=== PATIENT | male | born 1955 | race Caucasian/White ===

== ENCOUNTER → 2017-01-28 | Outpatient (CLI) | payer OTHER ==
[~2017-01-28] MED LIST: LRT5 PO; PREDNISONE TAPER
[2017-01-28 18:12] LABS: ALT/SGPT 35 U/L (12-78); AST/SGOT 25 U/L (15-37); BLOOD UREA NITROGEN 28 mg/dl (7-18); BUN/CREATININE RATIO 27.8 (10-20); CARBON DIOXIDE 29 mmol/L (21-32); CHLORIDE 105 mmol/L (98-107); CHOLESTEROL 237 mg/dl (0-200); GLUCOSE 104 mg/dl (70-99); POTASSIUM 4.1 mmol/L (3.5-5.1); SODIUM 140 mmol/L (136-145)
[2017-01-28 18:18] LABS: ALB/GLOB RATIO 1.5 (0.9-2); ALKALINE PHOSPHATASE 60 U/L (45-117); CHOLESTEROL/HDL RATIO 3.6; HDL CHOLESTEROL 66 mg/dl; LDL CHOLESTEROL CALCULATED 126 mg/dl; TRIGLYCERIDES 223 mg/dl (0-150); VERY LOW DENSITY LIPOPROT CALC 45 mg/dl
== END | disposition home or self-care (01) ==
LOC: C.LABBC 11:03
PROVIDERS: ATTEND Physician Assistant Medical
DX: Z00.00 Encounter for general adult medical examination without abnormal findings (principal); Z85.46 Personal history of malignant neoplasm of prostate; E78.5 Hyperlipidemia, unspecified

== ENCOUNTER 2017-11-28 19:36 | Emergency (ER) | payer OTHER ==
[~2017-11-28] VITALS: Ht 177.8 cm; Wt 87.4 kg
[2017-11-28 19:38] VITALS: TEMP 36.7; Ht 177.8 cm; Wt 87.4 kg
[2017-11-28] MEDS ORDERED: CIPR-255 PO (20:46)
--- NOTE | 2017-11-28 20:49 | EMERGENCY ROOM VISIT NOTE ---
History Report prepared by Lanny: Lam Hollis Under the Supervision of: Dr. Gautam Edwards D.O. First contact with patient: 19:42 Chief Complaint: URINARY SYMPTOMS Stated Complaint: BLADDER RETENTION Nursing Triage Summary: Pt states, "Since yesterday morning I have blood in my urine. Sometimes it is pieces of blood. I have prostate enlargement." Denies flank pain. Denies past hx of similar sx. History of Present Illness The patient is a 61 year old male who presents to the Emergency Room with complaints of hematuria that started 1 day ago. He states that yesterday morning , he was initially urinating small clots which increased to "urinating blood". He states that he has difficulty urinating, increased urination, and an enlarged prostate. He denies flank, back, abdominal, and penile pain. The patient reports recent travel and noticed that after intercourse yesterday, he noticed blood clots in his urine. The patient states that he took Cipro. Of note , the patient states he had prostate cancer treated in [place] and followed up with Dr. Kweis Ruiz (urology) 10 years ago for blood/PSA test. Source of History: patient Onset: 1 day ago Position: pelvis Timing: constant Associated Symptoms: + urinary symptoms (hematuria, increased urination, and difficulty urinating), No abdominal pain, No back pain Note: Patient denies flank and penile pain. Review of Systems See HPI for pertinent positives & negatives. A total of 10 systems reviewed and were otherwise negative. Past Medical & Surgical Surgical Problems: (1) Prostate CA Social History Smoking Status: Never Smoker Marital Status: Housing Status: lives with significant other Current/Historical Medications Scheduled Ciprofloxacin Hcl (Cipro), 500 MG PO BID Hydrocodone/Acetaminophen 5MG/500MG (Vicodin 5MG/500MG), 1-2 TAB PO Q6HR PRN Miscellaneous Medications [Prednisone Taper] Allergies Coded Allergies: No Known Allergies (Unverified Allergy, Mild, 07/20/07) Physical Exam Vital Signs Date Time Temp Pulse Resp B/P (MAP) Pulse Ox O2 Delivery O2 Flow Rate FiO2 11/28/17 19:38 36.7 80 16 170/111 96 Room Air Physical Exam CONSTITUTIONAL/VITAL SIGNS: Reviewed / noted above. GENERAL: Non-toxic in appearance. INTEGUMENTARY: Warm, dry, and [place]. HEAD: Normocephalic. EYES: without scleral icterus or trauma. ENT/OROPHARYNX: clear and moist. LYMPHADENOPATHY/NECK: Is supple without lymphadenopathy or meningismus. RESPIRATORY: Lungs clear and equal. CARDIOVASCULAR: Regular rate and rhythm. GI/ABDOMEN: Soft and nontender. No organomegaly or pulsatile mass. No rebound or guarding. Normal bowel sounds. EXTREMITIES: Warm and well perfused. BACK: No CVA tenderness. NEUROLOGICAL: Intact without focal deficits. PSYCHIATRIC: normal affect. MUSCULOSKELETAL: Normally developed with good muscle tone. Medical Decision & Procedures Laboratory Results Test 11/28/17 19:50 Urine Color RED Urine Appearance TURBID (CLEAR) Urine pH 6.0 (4.5-7.5) Urine Specific [place] 1.015 (1.000-1.030) Urine Protein 2+ (NEG) Urine Glucose (UA) NEG (NEG) Urine Ketones NEG (NEG) Urine Occult Blood 3+ (NEG) Urine Nitrite NEG (NEG) Urine Bilirubin NEG (NEG) Urine Urobilinogen NEG (NEG) Urine Leukocyte Esterase NEG (NEG) Urine RBC >30 /hpf (0-4) Urine WBC >30 /hpf (0-5) Urine Epithelial Cells 5-10 /lpf (0-5) Urine Bacteria NEG (NEG) Urine Hyaline Casts 0 /lpf (0-5) Laboratory results as stated above per my review. ED Course 1999: Previous medical records were reviewed. The patient was evaluated in room C12B. A complete history and physical examination was performed. 2100: On reevaluation, the patient is doing well. I discussed the results and findings with the patient. He verbalized agreement of the treatment plan. He was discharged home. Medical Decision Differential diagnoses includes hematuria, UTI, prostate infection, bladder infection, kidney stones, and bladder cancer This is a 61-year-old male who presents to the ED with a chief complaint of hematuria. The patient states that his symptoms started yesterday morning. He reports hematuria as well as some clots. He does report a history of enlarged prostate. He denied having any pain. He did start Cipro this morning that he had at his house. The patient states that he took 2 doses this morning and another dose this evening. His exam was completely normal. His urinalysis is noted. No clear bacteria but there is protein and blood as well as leukocytes. The sample may be challenging to understand since he did take a couple doses of Cipro. Because the patient's hematuria, he will continue taking Cipro. He was given a prescription for this. The patient is to follow-up with Dr. Ruiz this week for recheck. If symptoms persist a cystoscopy may be beneficial. This decision will be left up to Dr. Ruiz. The patient was advised that his symptoms could be related to a urinary tract infection and/or bladder cancer. The patient requested a self-catheterization kit in case he has problems draining his bladder due to clots. He was provided with a kit. He states that he knows how to use it. Is advised on how to use this sterilely. Medication Reconcilliation Current Medication List: was personally reviewed by me Blood Pressure Screening Patient's blood pressure: Elevated blood pressure Blood pressure disposition: Elevated BP felt to be situational Impression Primary Impression: Symptoms involving urinary system Additional Impression: Hematuria Scribe Attestation The scribe's documentation has been prepared under my direction and personally reviewed by me in its entirety. I confirm that the note above accurately reflects all work, treatment, procedures, and medical decision making performed by me. Departure Information Dispostion Home / Self-Care Prescriptions Ciprofloxacin Hcl (CIPRO) 500 Mg Tab 500 MG PO BID, #14 TAB Prov: Gautam Edwards D.O. 11/28/17 Referrals No Doctor, Assigned (PCP) Patient Instructions Hematuria, My [facility] Additional Instructions The urine sample did not reveal a clear urinary tract infection. The sample may be difficult to assess because of the Cipro you have taken today. Continue Cipro as prescribed. Follow-up with Dr. Ruiz this week for recheck and possible cystoscopy to rule out bladder cancer. Problem Qualifiers
[2017-11-28] MEDS ORDERED: TAMS0.4C38 PO (21:06)
[2017-11-28] MEDS ORDERED: LISI-729 PO (21:06)
[2017-11-28] MEDS ORDERED: SIMV20TA2 PO (21:06)
[2017-11-28] MEDS ORDERED: BUSP1TAB46 PO (21:06)
[2017-11-28 21:15] VITALS: BP 154/98; PULSE 73; O2SAT 95
== END 2017-11-28 21:16 | disposition home or self-care (01) ==
LOC: C.EDB 19:38
DX: R31.9 Hematuria, unspecified (principal); N40.0 Benign prostatic hyperplasia without lower urinary tract symptoms; Z85.46 Personal history of malignant neoplasm of prostate

== ENCOUNTER 2017-11-29 21:43 | Emergency (ER) | payer OTHER ==
[~2017-11-29] VITALS: Ht 177.8 cm; Wt 87.1 kg
[~2017-11-29 21:43] MED LIST changes: +BUSP1TAB46 PO; +CIPR-255 PO; +LISI-729 PO; -LRT5 PO; -PREDNISONE TAPER; +SIMV20TA2 PO; +TAMS0.4C38 PO
[2017-11-29 21:55] VITALS: TEMP 36.7; Ht 177.8 cm; Wt 87.1 kg
[2017-11-29] MEDS ORDERED: LIDOCAINE HCL 2% JELLY 30 ML TUBE EXT ONE (23:58)
[2017-11-30 00:33] VITALS: BP 129/80; PULSE 70; O2SAT 96
--- NOTE | 2017-11-30 03:24 | EMERGENCY ROOM VISIT NOTE ---
History Report prepared by Lanny: Lam Hollis Under the Supervision of: Dr. Gautam Edwards D.O. First contact with patient: 23:30 Chief Complaint: HEMATURIA Stated Complaint: BLOOD IN URINE Nursing Triage Summary: pt seen here yesterday for hematuria. pt given straight cath to take home. unable to get it in. thinks he has blood clot and unable to void. History of Present Illness The patient is a 62 year old male who presents to the Emergency Room with complaints of inability to urinate completely that began prior to arrival. The patient was seen at the ED yesterday for hematuria and discharged with a catheter which he was able to insert into his urethra last night. The patient states he was unable to see Dr. Ruiz today and will reschedule to get a scope done. He states he was at the [facility] earlier today and states pieces of blood were in his urine which he states is from recent trauma to his urethra. Of note, the patient is still taking Cipro. Source of History: patient Onset: [employer]IL [employer] Position: other (genitourinary) Timing: constant Associated Symptoms: + urinary symptoms (The patient has been unable to urinate and states blood clots in urine) Review of Systems See HPI for pertinent positives & negatives. A total of 10 systems reviewed and were otherwise negative. Past Medical & Surgical Surgical Problems: (1) Prostate CA Social History Smoking Status: Never Smoker Marital Status: Housing Status: lives with significant other Current/Historical Medications Scheduled Buspirone Hcl (Buspirone Hcl), 7.5 MG PO TID Ciprofloxacin Hcl (Cipro), 500 MG PO BID Lisinopril (Prinivil), 5 MG PO BID Simvastatin (Zocor), 20 MG PO QPM Tamsulosin Hcl (Flomax), 0.4 MG PO DAILY Allergies Coded Allergies: No Known Allergies (Unverified , 11/29/17) Physical Exam Vital Signs Date Time Temp Pulse Resp B/P (MAP) Pulse Ox O2 Delivery O2 Flow Rate FiO2 11/30/17 00:33 70 18 129/80 96 11/29/17 21:55 36.7 77 18 141/89 95 Room Air Physical Exam CONSTITUTIONAL/VITAL SIGNS: Reviewed / noted above. GENERAL: Non-toxic in appearance. INTEGUMENTARY: Warm, dry, and [place]. HEAD: Normocephalic. EYES: without scleral icterus or trauma. ENT/OROPHARYNX: clear and moist. LYMPHADENOPATHY/NECK: Is supple without lymphadenopathy or meningismus. RESPIRATORY: Lungs clear and equal. CARDIOVASCULAR: Regular rate and rhythm. GI/ABDOMEN: Soft and nontender. No organomegaly or pulsatile mass. No rebound or guarding. Normal bowel sounds. EXTREMITIES: Warm and well perfused. BACK: No CVA tenderness. NEUROLOGICAL: Intact without focal deficits. PSYCHIATRIC: normal affect. MUSCULOSKELETAL: Normally developed with good muscle tone. Medical Decision & Procedures Medications Administered Medications (Trade) Dose Ordered Sig/[place]ia Route Start Time Stop Time Status Last Admin Dose Admin Lidocaine HCl (Xylocaine Jelly 2%) 30 ml STK-MED ONCE EXT 11/29/17 23:58 11/29/17 23:59 DC 11/29/17 23:58 30 ML ED Course 2330: Previous medical records were reviewed. The patient was evaluated in room B6. A complete history and physical examination was performed. 0045: On reevaluation, the patient is doing well. I discussed the results and findings with the patient. He verbalized agreement of the treatment plan. The patient was discharged home. Medical Decision Differential considered: pancreatitis, hepatitis, or acute cholecystitis, AAA, UTI, pyelonephritis, kidney stones, appendicitis, diverticulitis, shingles, bowel obstruction mesenteric ischemia, intussusception,hernia, testicular torsion. This is a 62-year-old male who presents to the ED with a chief complaint of hematuria. The patient was seen by myself yesterday. Urine culture revealed some pinpoint growth and is being recultured. The patient's exam today reveals some clots and urinary dysfunction. A Spencer catheter was placed. The patient did see a urologist earlier today and is being currently treated with Cipro. He is going to have a cystoscopy later this week. A Spencer catheter was placed and a leg bag was provided. The bladder was irrigated somewhat. The patient was educated on how to do this and he was felt to be stable for discharge. Medication Reconcilliation Current Medication List: was personally reviewed by me Blood Pressure Screening Patient's blood pressure: Elevated blood pressure Blood pressure disposition: Elevated BP felt to be situational Impression Primary Impression: Hematuria Scribe Attestation The scribe's documentation has been prepared under my direction and personally reviewed by me in its entirety. I confirm that the note above accurately reflects all work, treatment, procedures, and medical decision making performed by me. Departure Information Dispostion Home / Self-Care Referrals No Doctor, Assigned (PCP) Patient Instructions My [facility]
== END 2017-11-30 00:33 | disposition home or self-care (01) ==
LOC: C.EDB 21:45
DX: R31.9 Hematuria, unspecified (principal); Z85.46 Personal history of malignant neoplasm of prostate

== ENCOUNTER → 2017-12-02 | Outpatient (CLI) | payer OTHER ==
[2017-12-02 17:34] LABS: HEMATOCRIT 42.2 % (42-52); HEMOGLOBIN 14.2 g/dL (14.0-18.0); MEAN CELL VOLUME 90.8 fL (80-100); MEAN CORPUSCULAR HEMOGLOBIN 30.5 pg (25-34); MEAN CORPUSCULAR HGB CONC 33.6 g/dl (32-36); MEAN PLATELET VOLUME 11.7 fL (7.4-10.4); PLATELET COUNT 141 K/uL (130-400); RED CELL DISTRIBUTION WIDTH CV 13.4 % (11.5-14.5); RED CELL DISTRIBUTION WIDTH SD 44.1 fL (36.4-46.3); WHITE BLOOD COUNT 7.98 K/uL (4.8-10.8)
[2017-12-02 17:51] LABS: BLOOD UREA NITROGEN 25 mg/dl (7-18); CALCIUM 9.1 mg/dl (8.5-10.1); CARBON DIOXIDE 27 mmol/L (21-32); CREATININE 1.29 mg/dl (0.60-1.40); GLUCOSE 95 mg/dl (70-99); POTASSIUM 4.3 mmol/L (3.5-5.1); SODIUM 135 mmol/L (136-145)
== END | disposition home or self-care (01) ==
LOC: C.LABBC 15:20
PROVIDERS: ATTEND Urology
DX: R00.2 Palpitations (principal); C61 Malignant neoplasm of prostate; R31.0 Gross hematuria

== ENCOUNTER → 2017-12-07 | Outpatient (CLI) | payer OTHER ==
[~2017-12-07] MED LIST changes: +OPTIRAY 320 IV PRN
--- NOTE | 2017-12-07 10:13 | DIAGNOSTIC IMAGING REPORT ---
CT OF THE ABDOMEN AND PELVIS WITH AND WITHOUT CONTRAST HEMATURIA PROTOCOL CLINICAL HISTORY: Gross hematuria. Malignant neoplasm of prostate. COMPARISON STUDY: Whole body bone scan April 21, 2006 TECHNIQUE: Unenhanced and split bolus phase imaging of the abdomen and pelvis was performed. Injection of 93 cc Optiray 320 IV was uneventful. A dose lowering technique was utilized adhering to the principles of ALARA. CT DOSE: 1661.46 mGycm FINDINGS: Moderate cardiomegaly is noted. The liver, spleen, adrenal glands and pancreas are unremarkable. There is no abdominal or pelvic lymphadenopathy. There is no evidence for a bowel obstruction. The appendix is normal. A fat-containing right inguinal hernia is present. No renal, ureteral or bladder calculi are present. There are no renal lesions. No upper tract urothelial lesions are identified. There is no hydronephrosis or hydroureter. There is moderate enlargement of the prostate. Median lobe of the prostate indents the base of the bladder. Moderate bladder wall thickening is noted. There is mild adjacent infiltration. Evaluation of the bladder is suboptimal given incomplete opacification. No suspicious osseous lesions are present. IMPRESSION: 1. Moderate bladder wall thickening and mild adjacent infiltration. These findings raise the possibility of cystitis. Associated prostatic enlargement raises the possibility of chronic bladder outlet obstruction. No discrete bladder mass by CT. 2. No hydronephrosis or hydroureter. No upper tract urothelial lesions. No urinary calculi. 3. No evidence for metastatic disease within the abdomen or pelvis. Electronically signed by: Rell Stearns M.D. 12/07/2017 10:12 AM Dictated Date/Time: 12/07/2017 8:52 AM
== END | disposition home or self-care (01) ==
LOC: C.CTS 07:17
PROVIDERS: ATTEND Urology
DX: C61 Malignant neoplasm of prostate (principal); R31.0 Gross hematuria

== ENCOUNTER → 2017-12-10 | Outpatient (CLI) | payer OTHER ==
[~2017-12-10] MED LIST changes: -OPTIRAY 320 IV PRN
== END | disposition home or self-care (01) ==
LOC: C.LABSPEC 14:44
PROVIDERS: ATTEND Urology
DX: C61 Malignant neoplasm of prostate (principal); R33.9 Retention of urine, unspecified

== ENCOUNTER 2025-02-26 07:43 | Observation (INO) ==
[2025-02-26 07:52] VITALS: TEMP 98.2
[2025-02-26] MEDS ORDERED: STAT IV Infusion **Titration per Protocol STA (08:09)
[2025-02-26 08:12] LABS: Basophils # (auto) 0.02 K/uL (0.00-0.20); Basophils % (auto) 0.4 %; Eosinophils # (auto) 0.08 K/uL (0.00-0.50); Eosinophils % (auto) 1.7 %; Hematocrit (blood only) 42.4 % (42.0-52.0); Hemoglobin 14.4 g/dl (14.0-18.0); Immature Granulocytes # (auto) 0.01 K/uL (0.01-0.20); Immature Granulocytes % (auto) 0.2 %; Lymphocytes # (auto) 2.22 K/uL (1.20-3.40); Mean Corpuscular Hemoglobin 30.7 pg (25.0-34.0); Mean Corpuscular Volume 90.4 fL (80.0-100.0); Mean Platelet Volume 10.8 fL (9.4-12.4); Monocytes # (auto) 0.43 K/uL (0.11-0.59); Monocytes % (auto) 9.1 %; Neutrophils # (auto) 1.96 K/uL (1.40-6.50); Neutrophils % (auto) 41.6 %; Platelet Count 118 K/uL (130-400); RDW Standard Deviation 42.5 fL (36.4-46.3); Red Blood Count 4.69 M/uL (4.70-6.10); White Blood Count 4.72 K/ul (4.8-10.8)
--- NOTE | 2025-02-26 08:12 | Emergency Department Note ---
Impression & Plan Atrial fibrillation with rapid ventricular response, Shortness of breath ED Provider Note NAME: CASSANDRA AMAYA AGE: 69 SEX: M : 1955 ARRIVES VIA: Walk-In INFORMANT: Patient ED PROVIDER(S): Janes Zepeda DO CHIEF COMPLAINT: Palpitations HPI: Patient is a 69-year-old male with a past medical history of tremors, anemia, hypertension, anxiety, hyperlipidemia who presents to the ER for palpitations. Started around he thinks 5 AM this morning. He feels his heart racing. He does feel short of breath and very weak and rundown. Denies any headache or change in vision. No chest pain. Denies any dysuria, urgency or frequency. He notes he has had a history of A-fib before in the past. Does not take any blood thinner. ADDITIONAL HISTORY OBTAINED: is at bedside and provides additional history and notes that he gets these episodes about once a month but this 1 is much worse than what he has had before in the past. Chronic Medical/Social Conditions Affecting Care: Per HPI PAST MEDICAL HISTORY:See Below PAST SURGICAL HISTORY:See Below FAMILY HISTORY:See Below SOCIAL HISTORY:See Below HOME MEDICATIONS:See Below ALLERGIES:See Below VITALS:See Below PHYSICAL EXAMINATION: GENERAL: Sitting up in bed, alert, well appearing, well nourished, no distress, non-toxic EYE EXAM: normal conjunctiva. OROPHARYNX: mucous membranes are moist LUNGS: Clear to auscultation. Normal chest wall mechanics HEART: Tachycardic and irregularly irregular S1 normal and S2 normal ABDOMEN: abdomen soft, non-tender, normo-active bowel sounds, no masses, no rebound or guarding. UPPER EXTREMITIES: upper extremities are grossly normal. LOWER EXTREMITIES: No pitting edema. NEURO EXAM: Normal sensorium, cranial nerves II-XII grossly intact, normal speech, no gross weakness of arms, no gross weakness of legs. MEDICAL DECISION MAKING: Patient is a 69-year-old male who presents ER for palpitations with a remote history of A-fib with RVR. IV was established and blood work was obtained. He was significantly short of breath. Labs show mild leukopenia 4.7 thousand. No anemia. BMP with mild hypokalemia 3.3. LFTs and bilirubin was unremarkable. TSH mildly elevated. Lipase was normal. Troponin was negative. EKG was consistent with A-fib with RVR. Patient was given Cardizem bolus and started on Cardizem drip. This was titrated up to 10. Heart rate trended down to about 110. Patient was still in A-fib and consequently discussed case with the hospitalist for further evaluation management treatment. Consults/Care Managements Discussions: Per [facility] Triage Nursing notes reviewed. Limited review of prior medical records performed Vital Signs: reviewed and remarkable for HTN and tachy Differential diagnosis: Cardiac ischemia, aortic dissection, pulmonary embolism, pneumothorax, pneumonia, pericarditis, myocarditis, esophageal rupture, GERD, cholecystitis, pancreatitis, musculoskeletal, as well as other pathologies. ER treatment provided: See below Diagnostics interpreted by me include EKG and cardiac monitoring as listed below: -Cardiac Monitoring: An order was placed for continuous cardiac monitoring. The monitor shows a rate of 140 with A-fib rhythm. -ECG: A-fib rate of 145 Left axis No PVCs QTc 487 -Laboratory studies:Interpreted by me as stated above in MDM and shown below. Imaging studies: Xrays: As interpreted by me: Portable AP upright 1 view of the chest shows no focal infiltrate CTs show: none Procedures:none Critical Care: I have personally spent 33 minutes of critical care time in the direct management of this patient. This includes bedside care, interpretation of diagnostic studies, and testing, discussion with consultants, patient, and family members, and other required patient management activities. This 33 minutes is in excess of all separately billable procedures. Past Med/Surg History Problem List (Updated 02/26/25 @ 12:19 by Janes Zepeda DO) Shortness of breath (Acute) Hypokalemia Atrial fibrillation with rapid ventricular response (Acute) Lower urinary tract symptoms (LUTS) Hypothyroidism Essential tremor Lumbar radiculopathy Spinal stenosis of lumbar region Epidermoid cyst Positive colorectal cancer screening using Cologuard test Encounter for pre-operative examination Hematuria (Acute) Lumbar disc disease (Chronic) Anemia Abnormal WBC count HTN (hypertension) (Chronic) History of prostate cancer (~2003) LASER TREATMENT Anxiety Hyperlipidemia Medical History Chronic back pain Symptomatic PVCs Surgical History Nausea and vomiting after administration of anesthetic agent History of knee surgery Family History Father Kidney stones Mother Stroke Brother Stroke Hypertension Denies family history of Ovarian cancer Prostate cancer Diabetes Depression Heart disease Myocardial infarction Breast cancer Lung cancer Colorectal cancer Social History Smoking Status: Never smoker Second Hand Exposure: No; Do You Dip or Chew Tobacco: No; Hx Alcohol Use: Yes Alcohol type: wine Alcohol Intake Frequency: 4 or More x per/Week Alcohol Intake Frequency Comment: daily Hx Substance Use: No Preferred Language: Swedish Communication Ability: Effective Visual Impairment: No Limitations Hearing Ability: Normal Power Lineworker Required: No Beliefs That Will Affect Care: None marital status: Current Living Situation: Spouse current occupational status: employed and retired current occupation: still working fulltime Feels Safe at Home: Yes Childhood Exposure to Second-Hand Smoke: No Diet: regular caffeine: Yes during the past year weight has: remained stable Dental Care, Regularly: Yes Physical Activity Frequency: 1-2 Times per Week Physical Activity Frequency Comment: goes to gym and walks Seatbelt Use: always Sunscreen Use: Yes (not in the sun) Do you think of yourself as: straight/heterosexual Assistive Devices: None Allergies Allergies Allergy/AdvReac Type Severity Reaction Status Date / Time No Known Allergies Allergy Mild Verified 02/26/25 09:26 Home Meds Home Medications Medication Instructions Recorded Confirmed levothyroxine 25 mcg tablet 25 mcg PO DAILY 02/26/25 02/26/25 metoprolol succinate 25 mg 25 mg PO DAILY 02/26/25 02/26/25 tablet,extended release 24 hr tamsulosin 0.4 mg capsule 0.4 mg PO BID 02/26/25 02/26/25 Previous Rx's Medication Instructions Recorded atorvastatin 40 mg tablet 40 mg PO DAILY #90 tabs 11/08/24 sildenafil 100 mg tablet 100 mg PO DAILY PRN sexual 02/13/25 activity #90 tabs Results & Data (ED) Vital Signs Vital Signs - 24 hr 02/26/25 07:48 02/26/25 07:59 02/26/25 08:03 Temperature 36.8 C Temperature Source Temporal Artery Scan Pulse Rate 133 H 146 H Pulse Rate [Apical] Pulse Rate from SpO2 Sensor Pulse Rhythm Pulse Rhythm [Apical] Pulse Strength [Apical] Respiratory Rate 20 Respiratory Effort / Characteristics Short of Breath Respiratory Depth Respiratory Pattern Blood Pressure 114/75 Blood Pressure [Left Arm] Blood Pressure Mean 88 Blood Pressure Mean [Left Arm] Blood Pressure Position [Left Arm] Pulse Oximetry 100 Oxygen Delivery Method Room Air Room Air Sepsis New/Unexplained Change in Mental Status No Sepsis Action Taken by Nursing No Action Required 02/26/25 08:03 02/26/25 08:03 02/26/25 08:03 Temperature Temperature Source Pulse Rate 128 H 129 H Pulse Rate [Apical] Pulse Rate from SpO2 Sensor Pulse Rhythm Irregular Pulse Rhythm [Apical] Pulse Strength [Apical] Respiratory Rate 22 24 Respiratory Effort / Characteristics Respiratory Depth Respiratory Pattern Blood Pressure 144/125 H Blood Pressure [Left Arm] Blood Pressure Mean 135 Blood Pressure Mean [Left Arm] Blood Pressure Position [Left Arm] Pulse Oximetry 98 98 98 Oxygen Delivery Method Room Air Room Air Room Air Sepsis New/Unexplained Change in Mental Status Sepsis Action Taken by Nursing 02/26/25 08:15 02/26/25 08:21 02/26/25 08:42 Temperature Temperature Source Pulse Rate 128 H 120 H 114 H Pulse Rate [Apical] Pulse Rate from SpO2 Sensor Pulse Rhythm Pulse Rhythm [Apical] Pulse Strength [Apical] Respiratory Rate 18 24 18 Respiratory Effort / Characteristics Respiratory Depth Respiratory Pattern Blood Pressure 119/103 H 116/76 119/74 Blood Pressure [Left Arm] Blood Pressure Mean 108 89 89 Blood Pressure Mean [Left Arm] Blood Pressure Position [Left Arm] Pulse Oximetry 98 95 92 Oxygen Delivery Method Room Air Room Air Room Air Sepsis New/Unexplained Change in Mental Status Sepsis Action Taken by Nursing 02/26/25 08:43 02/26/25 09:00 02/26/25 09:21 Temperature Temperature Source Pulse Rate 99 H 143 H Pulse Rate [Apical] 118 H Pulse Rate from SpO2 Sensor Pulse Rhythm Pulse Rhythm [Apical] Irregular Pulse Strength [Apical] Normal Respiratory Rate 16 16 16 Respiratory Effort / Characteristics Non-Labored Spontaneous Respiratory Depth Normal Respiratory Pattern Regular Blood Pressure 118/70 114/80 Blood Pressure [Left Arm] 119/74 Blood Pressure Mean 104 91 Blood Pressure Mean [Left Arm] 89 Blood Pressure Position [Left Arm] Semi-fowlers Pulse Oximetry 94 96 97 Oxygen Delivery Method Room Air Room Air Room Air Sepsis New/Unexplained Change in Mental Status Sepsis Action Taken by Nursing 02/26/25 09:25 02/26/25 09:39 02/26/25 09:51 Temperature Temperature Source Pulse Rate 128 H 134 H 114 H Pulse Rate [Apical] Pulse Rate from SpO2 Sensor Pulse Rhythm Pulse Rhythm [Apical] Pulse Strength [Apical] Respiratory Rate 16 24 18 Respiratory Effort / Characteristics Respiratory Depth Respiratory Pattern Blood Pressure 115/89 110/77 121/86 Blood Pressure [Left Arm] Blood Pressure Mean 92 88 97 Blood Pressure Mean [Left Arm] Blood Pressure Position [Left Arm] Pulse Oximetry 94 93 95 Oxygen Delivery Method Room Air Room Air Room Air Sepsis New/Unexplained Change in Mental Status Sepsis Action Taken by Nursing 02/26/25 09:57 02/26/25 10:24 02/26/25 10:36 Temperature Temperature Source Pulse Rate 108 H 70 Pulse Rate [Apical] Pulse Rate from SpO2 Sensor Pulse Rhythm Pulse Rhythm [Apical] Pulse Strength [Apical] Respiratory Rate 18 18 Respiratory Effort / Characteristics Respiratory Depth Respiratory Pattern Blood Pressure 133/87 127/76 111/75 Blood Pressure [Left Arm] Blood Pressure Mean 102 93 93 Blood Pressure Mean [Left Arm] Blood Pressure Position [Left Arm] Pulse Oximetry 96 96 Oxygen Delivery Method Room Air Room Air Sepsis New/Unexplained Change in Mental Status Sepsis Action Taken by Nursing 02/26/25 10:42 02/26/25 11:00 Temperature Temperature Source Pulse Rate 61 65 Pulse Rate [Apical] Pulse Rate from SpO2 Sensor 65 Pulse Rhythm Pulse Rhythm [Apical] Pulse Strength [Apical] Respiratory Rate 18 18 Respiratory Effort / Characteristics Respiratory Depth Respiratory Pattern Blood Pressure 138/83 128/87 Blood Pressure [Left Arm] Blood Pressure Mean 101 100 Blood Pressure Mean [Left Arm] Blood Pressure Position [Left Arm] Pulse Oximetry 97 98 Oxygen Delivery Method Room Air Room Air Sepsis New/Unexplained Change in Mental Status Sepsis Action Taken by Nursing Laboratory Data 02/26/25 07:57 02/26/25 07:57 Lab Results 02/26/25 Range/Units 07:57 WBC 4.72 L (4.8-10.8) K/ul RBC 4.69 L (4.70-6.10) M/uL Hgb 14.4 (14.0-18.0) g/dl Hct 42.4 (42.0-52.0) % MCV 90.4 (80.0-100.0) fL MCH 30.7 (25.0-34.0) pg MCHC 34.0 (32.0-36.0) g/dL RDW Std Deviation 42.5 (36.4-46.3) fL RDW Coeff of Maxx 13.0 (11.5-14.5) % Plt Count 118 L (130-400) K/uL MPV 10.8 (9.4-12.4) fL Immature Gran % (Auto) 0.2 % Neut % (Auto) 41.6 % Lymph % (Auto) 47.0 % [place] % (Auto) 9.1 % Eos % (Auto) 1.7 % Baso % (Auto) 0.4 % Neut # (Auto) 1.96 (1.40-6.50) K/uL Lymph # (Auto) 2.22 (1.20-3.40) K/uL [place] # (Auto) 0.43 (0.11-0.59) K/uL Eos # (Auto) 0.08 (0.00-0.50) K/uL Baso # (Auto) 0.02 (0.00-0.20) K/uL Immature Gran # (Auto) 0.01 (0.01-0.20) K/uL Sodium 136 (136-145) mmol/L Potassium 3.3 L (3.5-5.1) mmol/L Chloride 100 (98-107) mmol/L Carbon Dioxide 22 (21-32) mmol/L Anion Gap 14 H (3-11) BUN 16 (6-23) mg/dl Creatinine 0.98 (0.6-1.4) mg/dl Est Cr Clr Drug Dosing Not Reportable eGFR 82.44 BUN/Creatinine Ratio 16.3 (10-20) Glucose 114 H (70-99(Fasting)) mg/dl Calcium 9.7 (8.6-10.3) mg/dl Magnesium 1.7 (1.7-2.4) mg/dl Total Bilirubin 0.8 (0.2-1.0) mg/dl AST 46 H (13-39) U/L ALT 55 H (7-52) U/L Alkaline Phosphatase 66 (34-104) U/L Troponin I High Sens 8.1 (0-20) pg/ml Total Protein 7.5 (6.0-8.3) gm/dl Albumin 4.5 (3.4-5.0) gm/dl Globulin 3.0 (2.5-4.0) gm/dl Albumin/Globulin Ratio 1.5 (0.9-2) Lipase 57 (11-82) U/L TSH 5.352 H (0.300-4.500) uIu/ml Free T4 1.01 (0.61-1.60) ng/dl Administered Medications Diltiazem HCl 125 mg/ Dextrose 125 mls @ 0 mls/hr IV .Q0M KARIN; Protocol Stop: 03/28/25 08:14 Last Titration: 02/26/25 10:36 Dose: Infused Documented By: Co-signed By: ARASH Titration: 02/26/25 10:35 Dose: 0 mg/hr, 0 mls/hr Documented By: Co-signed By: ARASH Titration: 02/26/25 09:31 Dose: 10 mg/hr, 10 mls/hr Documented By: Co-signed By: ARASH Admin: 02/26/25 08:58 Dose: 5 mg/hr, 5 mls/hr Documented By: Co-signed By: ARASH Potassium Chloride (K Jose / Wtr) 10 meq in 100 mls @ 100 mls/hr IV Q1H KARIN Stop: 02/26/25 12:29 Last Infusion: 02/26/25 12:11 Dose: Infused Documented By: Admin: 02/26/25 11:00 Dose: 100 mls/hr Documented By: Infusion: 02/26/25 10:55 Dose: Infused Documented By: Admin: 02/26/25 09:56 Dose: 100 mls/hr Documented By: Discontinued Medications Diltiazem HCl (Diltiazem Hcl 5 Mg/Ml 5 Ml Vial) 10 mg IV NOW STA Stop: 02/26/25 08:10 Last Admin: 02/26/25 08:14 Dose: 10 mg Documented By: Co-signed By: ARASH Enoxaparin Sodium (Enoxaparin Inj 40 Mg/0.4 Ml Syr) 40 mg SQ Q24H KARIN Stop: 03/28/25 10:14 Last Admin: 02/26/25 11:22 Dose: Not Given Documented By: Magnesium Sulfate/Dextrose (Magnesium Sulfate / D5w) 1 gm in 100 mls @ 50 mls/hr IV ONE ONE Stop: 02/26/25 11:43 Last Infusion: 02/26/25 12:11 Dose: Infused Documented By: Admin: 02/26/25 09:55 Dose: 50 mls/hr Documented By: Imaging Data Radiologist's Impression: Chest X-Ray 02/26/25 07:59 XR chest 1V portable CLINICAL HISTORY: Chest pain, nonspecific COMPARISON STUDY: 07/22/2023 FINDINGS: There is mild cardiomegaly with pulmonary vascular congestion. Inspiration is shallow. There is stranding opacity at the left lung base. No other consolidation or pleural effusion. No pneumothorax. IMPRESSION: 1. Mild CHF. 2. Atelectasis versus pneumonia left lung base. ACT 112: Negative or not required by law. Electronically signed by: Raza Nolasco M.D. 02/26/2025 8:41 AM Discharge Plan Visit Data Chief Complaint: Asthma Stated Complaint: HEART PALPITATIONS ED Provider: Janes Zepeda Discharge Problem: Atrial fibrillation with rapid ventricular response, Shortness of breath Patient Disposition: Admitted As Inpatient Condition: Fair Forms Stand Alone Forms: [facility] Prescriptions Prescriptions: No Action atorvastatin 40 mg tablet 40 mg PO DAILY Qty: 90 3RF sildenafil 100 mg tablet 100 mg PO DAILY PRN (Reason: sexual activity) Qty: 90 2RF levothyroxine 25 mcg tablet 25 mcg PO DAILY Rx Instructions: TAKE 1 TABLET BY MOUTH EVERY DAY tamsulosin 0.4 mg capsule 0.4 mg PO BID Rx Instructions: TAKE 1 CAPSULE BY MOUTH TWO TIMES DAILY metoprolol succinate 25 mg tablet extended release 24 hr 25 mg PO DAILY Referrals Referrals: Rajendra Montez DO [Primary Care Provider] -
[2025-02-26] MEDS: dilTIAZem HCl 5 MG/ML 5 ML VIAL IV STA (08:14)
[2025-02-26 08:30] LABS: Alanine Aminotransferase 55 U/L (7-52); Albumin Globulin Ratio 1.5 (0.9-2); Albumin Level 4.5 gm/dl (3.4-5.0); Alkaline Phosphatase 66 U/L (34-104); Anion Gap 14 (3-11); Aspartate Aminotransferase 46 U/L (13-39); BUN Creatinine Ratio 16.3 (10-20); Bilirubin,Total 0.8 mg/dl (0.2-1.0); Blood Urea Nitrogen 16 mg/dl (6-23); Calcium 9.7 mg/dl (8.6-10.3); Carbon Dioxide 22 mmol/L (21-32); Chloride 100 mmol/L (98-107); Glucose 114 mg/dl (70-99(Fasting)); Lipase 57 U/L (11-82); Potassium 3.3 mmol/L (3.5-5.1); Sodium 136 mmol/L (136-145); Total Protein 7.5 gm/dl (6.0-8.3)
[2025-02-26 08:38] LABS: Troponin I High Sensitivity 8.1 pg/ml (0-20)
--- NOTE | 2025-02-26 08:42 | XRay Report ---
XR chest 1V portable CLINICAL HISTORY: Chest pain, nonspecific COMPARISON STUDY: 07/22/2023 FINDINGS: There is mild cardiomegaly with pulmonary vascular congestion. Inspiration is shallow. Ther e is stranding opacity at the left lung base. No other consolidation or pleural effusion. No pneumoth orax. IMPRESSION: 1. Mild CHF. 2. Atelectasis versus pneumonia left lung base. ACT 112: Negative or not required by law. Electronically signed by: Raza Nolasco M.D. 02/26/2025 8:41 AM
[2025-02-26] MEDS: dilTIAZem HCL 125 MG in DEXTROSE 5% 100 ML IV SCH (08:58)
--- NOTE | 2025-02-26 09:04 | Electrocardiogram Report ---
Test Reason : Blood Pressure : */* mmHG Vent. Rate : 145 BPM Atrial Rate : * BPM P-R Int : * ms QRS Dur : 100 ms QT Int : 314 ms P-R-T Axes : * -4 -28 degrees QTcB Int : 487 ms Atrial fibrillation with rapid ventricular response Inferior infarct , age undetermined Abnormal ECG When compared with ECG of 22-Jul-2023 10:07, Atrial fibrillation has replaced Sinus rhythm Vent. rate has increased by 75 bpm Inferior infarct is now Present ST now depressed in Anterolateral leads Inverted T waves have replaced nonspecific T wave abnormality in Inferior leads Confirmed by Ирина Leon (Allen) on 02/26/2025 9:04:01 AM Referred By: REFERRED SELF Confirmed By: Ириан Leon
[2025-02-26] MEDS: MAGNESIUM SULFATE / D5W 1 GM/100 ML BAG IV ONE (09:55)
[2025-02-26 09:56] LABS: Magnesium 1.7 mg/dl (1.7-2.4)
[2025-02-26] MEDS: POTASSIUM CHLORIDE / WTR 10 MEQ/100 ML PLCT IV SCH (09:56)
[2025-02-26 10:11] LABS: Thyroid Stimulating Hormone 5.352 uIu/ml (0.300-4.500)
[2025-02-26] MEDS ORDERED: MELATONIN 3 MG TAB PO PRN ×2 (10:15→10:37)
[2025-02-26] MEDS ORDERED: POLYETHYLENE (MIRALAX) 17 GM PACK PO PRN ×2 (10:15→10:37)
[2025-02-26] MEDS ORDERED: ACETAMINOPHEN 325 MG TAB PO PRN ×2 (10:15→10:37)
[2025-02-26] MEDS ORDERED: Patient's HEIGHT &/or WEIGHT Needed SCH (10:30)
[2025-02-26 10:45] LABS: T4 Free Thyroxine 1.01 ng/dl (0.61-1.60)
--- NOTE | 2025-02-26 10:50 | History & Physical Report ---
Date of Service February 26, 2025 Assessment & Plan (1) Atrial fibrillation with rapid ventricular response: (2) Hypokalemia: Plan #Afib w/ RVR - likely secondary to dehydration and alcohol intake - asymptomatic, denies chest pain, palpitations, SOB - vitals: BP 127/76, HR 70 - trop 8.1, WNL - TSH 5.352 - EKG showed Atrial fibrillation with RVR; inferior infarct, age undetermined; ST depression in anterolateral leads, and inverted T waves in inferior leads - TTE pending - CHADS2-VASc score: 2 - s/p diltiazem in the ED Plan: - monitor on telemetry - metoprolol/diltiazem - start anticoagulation with DOAC, Eliquis 10mg BID for 7 days followed by Eliquis 5mg BID, pending insurance approval - electrolyte replacement protocol (Mg>2, K>4) - ordered TTE History of Present Illness Chief Complaint: palpitations Primary Care Provider: DO Brannon Fowler is a 69 year old male with a past medical history of tremors, anemia, hypertension, anxiety, hyperlipidemia who presented to the ER this morning after experiencing palpitations and shortness of breath. He felt well yesterday and drank a bottle of wine with dinner. He took his dose of metoprolol 25mg last night as usual. When he felt unwell this morning, he drank four bottles of water and took an additional dose of metoprolol. He reports that he felt out of breath like after running. He said he has not had similar symptoms since he was first diagnosed with Afib 2 years ago. No chest pain, weakness, urinary problems, nausea/vomiting/diarrhea. No history of TIA, stroke, or [place]. Nonsmoker, drinks 2-3 glasses of wine per night. Mother and two brothers with history of stroke. Allergies Allergy/AdvReac Type Severity Reaction Status Date / Time No Known Allergies Allergy Mild Verified 02/26/25 09:26 Home Medications Medication Instructions Recorded Confirmed Type atorvastatin 40 mg tablet 40 mg PO DAILY #90 tabs 11/08/24 02/26/25 Rx sildenafil 100 mg tablet 100 mg PO DAILY PRN sexual 02/13/25 02/26/25 Rx activity #90 tabs apixaban 5 mg tablet (Eliquis) 5 mg PO BID 1 month #60 tabs 02/26/25 Rx levothyroxine 25 mcg tablet 25 mcg PO DAILY 02/26/25 02/26/25 History metoprolol succinate 25 mg 25 mg PO DAILY 02/26/25 02/26/25 History tablet,extended release 24 hr metoprolol succinate 50 mg 50 mg PO QAM 1 month #30 tabs 02/26/25 Rx tablet,extended release 24 hr potassium chloride 20 mEq/15 mL 10 meq (7.5 mL) PO DAILY 7 days 02/26/25 Rx oral liquid #52.5 mL tamsulosin 0.4 mg capsule 0.4 mg PO BID 02/26/25 02/26/25 History Past Med/Surg History Problem List (Updated 02/26/25 @ 12:19 by Janes Zepeda DO) Shortness of breath (Acute) Hypokalemia Atrial fibrillation with rapid ventricular response (Acute) Lower urinary tract symptoms (LUTS) Hypothyroidism Essential tremor Lumbar radiculopathy Spinal stenosis of lumbar region Epidermoid cyst Positive colorectal cancer screening using Cologuard test Encounter for pre-operative examination Hematuria (Acute) Lumbar disc disease (Chronic) Anemia Abnormal WBC count HTN (hypertension) (Chronic) History of prostate cancer (~2003) LASER TREATMENT Anxiety Hyperlipidemia Medical History Chronic back pain Symptomatic PVCs Surgical History Nausea and vomiting after administration of anesthetic agent History of knee surgery Family History Father Kidney stones Mother Stroke Brother Stroke Hypertension Denies family history of Ovarian cancer Prostate cancer Diabetes Depression Heart disease Myocardial infarction Breast cancer Lung cancer Colorectal cancer Social History Smoking Status: Never smoker Second Hand Exposure: No; Do You Dip or Chew Tobacco: No; Hx Alcohol Use: Yes Alcohol type: wine Alcohol Intake Frequency: 4 or More x per/Week Alcohol Intake Frequency Comment: daily Hx Substance Use: No Preferred Language: Moldovan Communication Ability: Effective Visual Impairment: No Limitations Hearing Ability: Normal Regional Sales Engineer Required: No Beliefs That Will Affect Care: None marital status: Current Living Situation: Spouse current occupational status: employed and retired current occupation: still working fulltime Feels Safe at Home: Yes Childhood Exposure to Second-Hand Smoke: No Diet: regular caffeine: Yes during the past year weight has: remained stable Dental Care, Regularly: Yes Physical Activity Frequency: 1-2 Times per Week Physical Activity Frequency Comment: goes to gym and walks Seatbelt Use: always Sunscreen Use: Yes (not in the sun) Do you think of yourself as: straight/heterosexual Assistive Devices: None Physical Exam Physical Exam: GENERAL: A&Ox3. No acute distress. Appears stated age. Affect and speech appropriate. HEENT: PERRLA, EOMI, Conjunctiva clear. NECK: Supple, No lymphadenopathy. No carotid bruits. HEART: Tachycardic, irregularly irregular rhythm, normal S1, S2. No murmurs, gallops or clicks. LUNGS: Breathing not labored, breathing sounds clear bilaterally, no rales, rhonchi or wheezing. ABDOMEN: Positive bowel sounds, soft, nontender, non-distended. No hepatosplenomegaly noted. No masses. EXTREMITIES: No edema, clubbing or cyanosis. No joint swelling or tenderness. Results & Data Results & Data Vital Signs (Past 12 Hours) Vital Signs Temp Pulse Pulse Resp BP BP Pulse Ox 02/26/25 10:24 70 18 127/76 96 02/26/25 09:57 108 H 18 133/87 96 02/26/25 09:51 114 H 18 121/86 95 02/26/25 09:39 134 H 24 110/77 93 02/26/25 09:25 128 H 16 115/89 94 02/26/25 09:21 143 H 16 114/80 97 02/26/25 09:00 99 H 16 118/70 96 02/26/25 08:43 118 H 16 119/74 94 02/26/25 08:42 114 H 18 119/74 92 02/26/25 08:21 120 H 24 116/76 95 02/26/25 08:15 128 H 18 119/103 H 98 02/26/25 08:03 129 H 24 144/125 H 98 02/26/25 08:03 128 H 22 98 02/26/25 08:03 98 02/26/25 08:03 02/26/25 07:59 146 H 02/26/25 07:48 36.8 C 133 H 20 114/75 100 O2 Del Method 02/26/25 10:24 Room Air 02/26/25 09:57 Room Air 02/26/25 09:51 Room Air 02/26/25 09:39 Room Air 02/26/25 09:25 Room Air 02/26/25 09:21 Room Air 02/26/25 09:00 Room Air 02/26/25 08:43 Room Air 02/26/25 08:42 Room Air 02/26/25 08:21 Room Air 02/26/25 08:15 Room Air 02/26/25 08:03 Room Air 02/26/25 08:03 Room Air 02/26/25 08:03 Room Air 02/26/25 08:03 Room Air 02/26/25 07:59 02/26/25 07:48 Room Air Code Status & VTE Plan VTE Prophylaxis Plan VTE Prophylaxis will be ordered: Yes Supervising Physician Co-Signing Physician Notes I personally examined the patient and verified all perkins points of history and exam, discussed case, and agree with decision making with Dr Joy and Sara Damian MS2 Feeling okay now. Of note, he is converted to sinus rhythm by the time I enter the room. Vitals noted, in general he is awake and alert pleasant no distress. HEENT normocephalic atraumatic mucous membranes moist. Breathing unlabored no accessory muscle use good effort. Skin without rashes pallor or icterus. Neuro without focal deficits. A-fib/RVR - rate now controlled/converted to sinus rhythm - echo done, results pending, TSH sent and results are pending - outpatient screening for sleep apnea; alcohol use and age likely culprits, dehydration probably proximal "why now" as far as RVR today rather than a different day - given that he is now in sinus rhythm and feels well, his troponin is negative, and he is not short of breath, we will follow him over several hours, I asked him to get up and walk to ensure that he does not have palpitations/inappropriate tachycardia/dyspnea on exertionand if he continues to look quite stable, hopefully home later today - anticipate higher dosing of metoprolol, initiation of Eliquis at discharge otherwise as above Resident Supervision Co-Signing Physician Notes I independently took history andN did physical exam for Mr. Shvenke. He endorses h/o sudden palpitation this morning, associated with feeling of almost passing out. No LOC, No limb weakness, no stroke in past, Afib x 2 years, regularly taking meds. Apparently drank 1 bottle of wine last night. No regular f/u with cardiology. No recent Echo. Sees PCP who refills his metoprolol. Took Metoprolol 25 this AM. Usually takes on night. Exam: Hydration looks normal, Well appearing, was still on Afib when I saw him( HR: 110-120s) CVS: S1, S2, M0, IRIR no limb swelling Lungs : CTABS, no wheeze, crackles. Abdomen: soft non tender Neuro: no muscle power deficit. No sensory deficit. Assessment and Plan: - 69 yo with Afib on RVR on presentation, HR controlled with Diltiazem STAT at ED. Afib predisposed by heavy alcohol use and probably dehydration. Will admit him med surg tele for observation. Reverted back to sinus by admission time. #A-fib (w/ RVR) -likely 2/2 alcohol use/ dehydration -vitals: BP: stable -trop wnl -TSH under goal -EKG: Afib with RVR. -TTE: Ordered today. -CHADS2-VASC score:2 -s/p Diltiazem in the ED * PLAN: -Admit in PCU/ telemetry -Metoprolol 50 Once daily from tomorrow. - Lopressor 5 mg IV as needed for sustained HR. 130 for hour. -Start AC with DOAC (eliquis 5mg BID) -Electrolyte replacement protocol (Mg >2, K >4) -ordered TTE - F/u cardio Outpatient for superintendent container terminal care. Code status: DNR/DNI Heart heathy diet Expect DC by evening or tomorrow.
[2025-02-26] MEDS: ENOXAPARIN INJ 40 MG/0.4 ML SYR SQ SCH (11:22)
--- NOTE | 2025-02-26 11:27 | Billing Data ---
Date of Service February 26, 2025 Coding Level of Care Code 51241 INT INP/OBS CARE
[2025-02-26] MEDS ORDERED: METOPROLOL TARTRATE 1 MG/ML VIAL IV PRN (13:12)
[2025-02-26 13:50] VITALS: BP 126/77; RESP 20; O2SAT 100
[2025-02-26 14:14] VITALS: PULSE 58
[2025-02-26] MEDS: ATORVASTATIN 40 MG TAB PO SCH (14:30)
[2025-02-26] MEDS: APIXABAN 5 MG TABLET PO SCH (14:30)
--- NOTE | 2025-02-26 14:40 | Discharge Summary ---
Date of Service February 26, 2025 Admission HPI Per Admitting Provider Brannon is a 69 year old male with a past medical history of tremors, anemia, hypertension, anxiety, hyperlipidemia who presented to the ER this morning after experiencing palpitations and shortness of breath. He felt well yesterday and drank a bottle of wine with dinner. He took his dose of metoprolol 25mg last night as usual. When he felt unwell this morning, he drank four bottles of water and took an additional dose of metoprolol. He reports that he felt out of breath like after running. He said he has not had similar symptoms since he was first diagnosed with Afib 2 years ago. No chest pain, weakness, urinary problems, nausea/vomiting/diarrhea. No history of TIA, stroke, or [place]. Nonsmoker, drinks 2-3 glasses of wine per night. Mother and two brothers with history of stroke. Admission Exam (Per Admitting) Constitutional GENERAL: A&Ox3. No acute distress. Appears stated age. Affect and speech appropriate. HEENT: PERRLA, EOMI, Conjunctiva clear. NECK: Supple, No lymphadenopathy. No carotid bruits. HEART: Tachycardic, irregularly irregular rhythm. No murmurs, gallops or clicks. LUNGS: Breathing not labored, breathing sounds clear bilaterally, no rales, rhonchi or wheezing. ABDOMEN: Positive bowel sounds, soft, nontender, non-distended. No hepatosplenomegaly noted. No masses. EXTREMITIES: No edema, clubbing or cyanosis. No joint swelling or tenderness. Discharge Data Consultations 02/26/25 09:21 ED Decision to Admit Stat Hospital Course (1) Atrial fibrillation with rapid ventricular response: (2) Hypokalemia: Plan #Afib w/ RVR - likely secondary to dehydration and alcohol intake - s/p diltiazem in the ED - currently asymptomatic, denies chest pain, palpitations, SOB - vitals: BP 127/76, HR 70 - trop WNL, TSH 5.352 - hypokalemic, given K replacement and Mg - EKG showed atrial fibrillation with RVR; inferior infarct, age undetermined; ST depression in anterolateral leads, and inverted T waves in inferior leads - TTE pending - CHADS2-VASc score: 2 - Pt converted back to sinus rhythm while in observation Plan: - d/c to home - increase home metoprolol to 50 mg QD - start anticoagulation with DOAC, Eliquis 5mg BID, pending insurance approval Supervising Physician Co-Signing Physician Notes I personally examined the patient and verified all perkins points of history and exam, discussed case, and agree with decision making with Dr Joy and Sara Damian MS2 Feeling okay now. Of note, he is converted to sinus rhythm by the time I enter the room. Vitals noted, in general he is awake and alert pleasant no distress. HEENT normocephalic atraumatic mucous membranes moist. Breathing unlabored no accessory muscle use good effort. Skin without rashes pallor or icterus. Neuro without focal deficits. A-fib/RVR - rate now controlled/converted to sinus rhythm - echo done, results noted, outpt f/u. TSH 5.35 - outpatient screening for sleep apnea; alcohol use and age likely culprits, dehydration probably proximal "why now" as far as RVR today rather than a different day - safe for home, metoprolol/eliquis otherwise as above
--- NOTE | 2025-02-26 18:03 | XCELERA ---
[id number] \\[id number]
[2025-02-26] MEDS ORDERED: METOPROLOL SUCC 25MG EXT REL TAB PO SCH (20:00)
--- NOTE | 2025-02-26 20:40 | Billing Data ---
Date of Service February 26, 2025 Coding Level of Care Code 40303 IN/OBS DISCH 30 MIN/LESS
[2025-02-27] MEDS ORDERED: LEVOTHYROXINE SODIUM 25 MCG TABLET PO SCH (06:30)
[2025-02-27] MEDS ORDERED: POTASSIUM CHLORIDE CRTAB 20 MEQ TABCR PO SCH (09:00)
== END 2025-02-26 15:09 | disposition home or self-care (01) ==
LOC: EDINP 07:43 → ED 07:43 → EDINP 13:13